=== PATIENT | male | born 1955 | race Caucasian/White ===

== ENCOUNTER → 2018-01-13 08:04 | Outpatient (CLI) | payer OTHER, SELFPAY ==
[2018-01-13 08:40] LABS: Add Manual Diff / Slide Review NO; Basophils Percent Auto 0.9 % (0-2); Eosinophils Percent Auto 3.8 % (2-4); Hematocrit 45.8 % (41-53); Hemoglobin 15.9 g/dL (13.5-17.5); Lymphocytes Percent Auto 29.5 % (25-40); Mean Corpuscular HGB Conc 34.7 % (30-36); Mean Corpuscular Hemoglobin 30.7 PG (26-34); Mean Corpuscular Volume 88.3 fL (80-100); Monocytes Percent Auto 9.8 % (3-14); Neutrophils Absolute Auto 2500 /uL (3000-5900); Platelet Count 264 X10^3/uL (150-400); Red Blood Cell Count 5.18 X10^6/uL (4.5-5.9); White Blood Cell Count 4.4 X10^3/uL (4.5-11.0)
[2018-01-13 08:48] LABS: Appearance Urine UA CLEAR; Bilirubin Urine UA NEGATIVE (NEGATIVE); Color Urine UA YELLOW; Glucose Urine UA NEGATIVE (Normal); Ketones Urine UA NEGATIVE (NEGATIVE); Leukocyte Esterase Urine UA NEGATIVE (NEGATIVE); Nitrite Urine UA Negative (Negative); Occult Blood Urine UA NEGATIVE (Negative); Protein Urine UA NEGATIVE (Negative); Specific Gravity Urine UA 1.015 (1.000-1.035); Urobilinogen Urine UA 0.2 E.U./dL (0.2)
[2018-01-13 08:52] LABS: Alanine Aminotransferase 30 IU/L (21-72); Albumin 4.1 g/dL (3.5-5.0); Albumin Globulin Ratio 1.3 (1.0-2.8); Alkaline Phosphatase 63 U/L (38-126); Aspartate Aminotransferase 28 IU/L (17-59); Bilirubin Total 0.8 mg/dL (0.2-1.3); Blood Urea Nitrogen 19 mg/dL (9-20); Calcium 8.9 mg/dL (8.4-10.2); Carbon Dioxide 30 mmol/L (22-32); Chloride 105 mmol/L (98-107); Cholesterol 172 mg/dL (140-199); Estimated Glomerular Filt Rate > 60.0 mL/min (>60); Globulin 3.1 g/dL (1.7-4.1); Glucose 95 mg/dL (80-110); HDL Cholesterol 51 mg/dL (40-60); HEMOLYSIS 16 (0-50); LDL Cholesterol Calculated 111 mg/dL (<100); Potassium 4.3 mmol/L (3.4-5.1); Sodium 143 mmol/L (137-145); Total Protein 7.2 g/dL (6.3-8.2); Triglycerides 52 mg/dL (35-150)
[2018-01-13 09:28] LABS: Thyroid Stimulating Hormone 0.87 uIU/mL (0.47-4.68)
[2018-01-13 09:46] LABS: Hep C Virus Ab w/Reflex Quant NEGATIVE s/c (NEGATIVE)
== END ==
PROVIDERS: PCP Family Medicine; Visit Provider Family Medicine
DX: E03.9 Hypothyroidism, unspecified (principal); E78.5 Hyperlipidemia, unspecified; Z51.81 Encounter for therapeutic drug level monitoring; Z20.5 Contact with and (suspected) exposure to viral hepatitis
CPT/HCPCS: 36415; 80053; 80061; 81003; 84443; 85025; 86803

== ENCOUNTER → 2019-01-18 07:00 | Outpatient (CLI) | payer OTHER, SELFPAY ==
[2019-01-18 07:05] LABS: WBC Urine None Seen (0-5/HPF)
[2019-01-18 08:07] LABS: Appearance Urine UA CLEAR; Bilirubin Urine UA NEGATIVE (NEGATIVE); Color Urine UA YELLOW; Glucose Urine UA NEGATIVE (Negative); Ketones Urine UA NEGATIVE (NEGATIVE); Leukocyte Esterase Urine UA NEGATIVE (NEGATIVE); Nitrite Urine UA NEGATIVE (Negative); Occult Blood Urine UA NEGATIVE (Negative); Protein Urine UA NEGATIVE (Negative); Specific Gravity Urine UA 1.015 (1.000-1.035); Urobilinogen Urine UA 0.2 E.U./dL (0.2); pH Urine UA 5.5 (4.5-8.0)
[2019-01-18 08:10] LABS: Add Manual Diff / Slide Review NO; Basophils Absolute Auto 100 /uL (0-100); Basophils Percent Auto 1.2 % (0-2); Eosinophils Absolute Auto 100 /uL (0-450); Eosinophils Percent Auto 2.8 % (2-4); Hematocrit 47.7 % (41-53); Hemoglobin 16.2 g/dL (13.5-17.5); Lymphocytes Absolute Auto 1400 /uL (1100-4500); Lymphocytes Percent Auto 29.6 % (25-40); Mean Corpuscular Hemoglobin 30.3 PG (26-34); Mean Corpuscular Volume 89.1 fL (80-100); Monocytes Absolute Auto 500 /uL (0-900); Monocytes Percent Auto 9.6 % (3-14); Neutrophils Absolute Auto 2700 /uL (1500-7000); Neutrophils Percent Auto 56.8 % (50-75); Platelet Count 315 X10^3/uL (150-400); Red Blood Cell Count 5.36 X10^6/uL (4.5-5.9); Red Cell Distribution Width 14.2 % (11.6-14.8); White Blood Cell Count 4.7 X10^3/uL (4.5-11.0)
[2019-01-18 08:23] LABS: Alanine Aminotransferase 27 IU/L (21-72); Albumin 4.3 g/dL (3.5-5.0); Albumin Globulin Ratio 1.3 (1.0-2.8); Alkaline Phosphatase 68 U/L (38-126); Aspartate Aminotransferase 31 IU/L (17-59); BUN Creatinine Ratio 15.5 (6-22); Bilirubin Total 0.7 mg/dL (0.2-1.3); Blood Urea Nitrogen 17 mg/dL (9-20); Calcium 9.1 mg/dL (8.4-10.2); Carbon Dioxide 28 mmol/L (22-32); Chloride 103 mmol/L (98-107); Cholesterol 188 mg/dL (140-199); Estimated Glomerular Filt Rate > 60.0 mL/min (>60); Globulin 3.3 g/dL (1.7-4.1); Glucose 92 mg/dL (80-110); HDL Cholesterol 51 mg/dL (40-60); HEMOLYSIS < 15 (0-50); LDL Cholesterol Calculated 127 mg/dL (<100); Potassium 4.7 mmol/L (3.4-5.1); Sodium 142 mmol/L (137-145); Total Protein 7.6 g/dL (6.3-8.2); Triglycerides 48 mg/dL (35-150)
[2019-01-18 08:27] LABS: Bacteria Urine Occasional (0-1); Culture Indicated Urine Cult Not Indicated; RBC Urine 0-1/HPF (0-5/HPF)
[2019-01-18 08:53] LABS: Prostate Specific Antigen 0.937 ng/mL (0.10-4.00)
[2019-01-18 09:30] LABS: Thyroid Stimulating Hormone 1.21 uIU/mL (0.47-4.68)
== END ==
PROVIDERS: Family Provider Urology; PCP Family Medicine; Visit Provider Family Medicine
DX: Z00.00 Encounter for general adult medical examination without abnormal findings (principal); R97.20 Elevated prostate specific antigen [PSA]; N40.0 Benign prostatic hyperplasia without lower urinary tract symptoms; E03.9 Hypothyroidism, unspecified; E78.5 Hyperlipidemia, unspecified; E78.00 Pure hypercholesterolemia, unspecified
CPT/HCPCS: 36415; 80053; 80061; 81001; 84153; 84443; 85025

== ENCOUNTER → 2019-04-25 08:47 | Outpatient (CLI) | payer OTHER, SELFPAY ==
[2019-04-25 10:13] LABS: Creatine Kinase 82 U/L (55-170)
[2019-04-25 10:16] LABS: C-Reactive Protein Quant < 0.5 mg/dL (<1.0)
[2019-04-25 10:20] LABS: Erythrocyte Sedimentation Rate 2 MM/HR (0-15)
[2019-04-25 10:58] LABS: Vitamin B12 440 pg/mL (239-931)
[2019-04-28 06:39] LABS: Aldolase 4.7 U/L (< 8.2)
[2019-04-29 19:50] LABS: Albumin 3.7 g/dL (3.8-4.8); Alpha 1 Globulin 0.2 g/dL (0.2-0.3); Alpha 2 Globulin 0.6 g/dL (0.5-0.9); Beta 1 Globulin 0.4 g/dL (0.4-0.6); Gamma Globulin 1.2 g/dL (0.8-1.7); Protein, Total 6.5 g/dL (6.1-8.1)
[2019-04-30 14:03] LABS: Vitamin B6 6.4 ng/mL (2.1-21.7)
[2019-04-30 14:51] LABS: Acetylcholine receptor antibod 18
[2019-05-05 09:48] LABS: Striational Tot Auto Antibodie NEGATIVE
== END ==
PROVIDERS: PCP Family Medicine; Visit Provider Internal Medicine
DX: M79.604 Pain in right leg (principal); M79.605 Pain in left leg; G62.9 Polyneuropathy, unspecified; G72.9 Myopathy, unspecified
CPT/HCPCS: 36415; 82085; 82550; 82607; 82784; 83036; 83519; 83520; 84155; 84165; 84207; 85651; 86038; 86140; 86200; 86255; 86334; 86431

== ENCOUNTER → 2020-01-17 07:16 | Outpatient (CLI) | payer OTHER, SELFPAY ==
[2020-01-17 08:43] LABS: Appearance Urine UA CLEAR; Bilirubin Urine UA NEGATIVE (NEGATIVE); Color Urine UA YELLOW; Glucose Urine UA NEGATIVE (Negative); Ketones Urine UA NEGATIVE (NEGATIVE); Leukocyte Esterase Urine UA NEGATIVE (NEGATIVE); Nitrite Urine UA NEGATIVE (Negative); Occult Blood Urine UA NEGATIVE (Negative); Protein Urine UA NEGATIVE (Negative); Specific Gravity Urine UA <=1.005 (1.000-1.035); Urobilinogen Urine UA 0.2 E.U./dL (0.2)
[2020-01-17 08:50] LABS: Add Manual Diff / Slide Review NO; Basophils Absolute Auto 0 /uL (0-100); Eosinophils Absolute Auto 100 /uL (0-450); Eosinophils Percent Auto 2.2 % (2-4); Hemoglobin 15.4 g/dL (13.5-17.5); Lymphocytes Absolute Auto 1000 /uL (1100-4500); Lymphocytes Percent Auto 22.5 % (25-40); Mean Corpuscular HGB Conc 34.2 % (30-36); Mean Corpuscular Hemoglobin 30.5 PG (26-34); Mean Corpuscular Volume 89.2 fL (80-100); Monocytes Absolute Auto 400 /uL (0-900); Monocytes Percent Auto 9.6 % (3-14); Neutrophils Absolute Auto 3000 /uL (1500-7000); Neutrophils Percent Auto 64.7 % (50-75); Platelet Count 269 X10^3/uL (150-400); Red Blood Cell Count 5.05 X10^6/uL (4.5-5.9); Red Cell Distribution Width 13.7 % (11.6-14.8); White Blood Cell Count 4.7 X10^3/uL (4.5-11.0)
[2020-01-17 09:08] LABS: Alanine Aminotransferase 23 IU/L (<50); Albumin 3.9 g/dL (3.5-5.0); Albumin Globulin Ratio 1.3 (1.0-2.8); Alkaline Phosphatase 67 U/L (38-126); Aspartate Aminotransferase 31 IU/L (17-59); Bilirubin Total 0.9 mg/dL (0.2-1.3); Blood Urea Nitrogen 15 mg/dL (9-20); Carbon Dioxide 30 mmol/L (22-32); Chloride 103 mmol/L (98-107); Cholesterol 163 mg/dL (140-199); Estimated Glomerular Filt Rate > 60.0 mL/min (>60); Glucose 88 mg/dL (80-110); HDL Cholesterol 57 mg/dL (40-60); HEMOLYSIS < 15 (0-50); LDL Cholesterol Calculated 93 mg/dL (<100); Potassium 4.3 mmol/L (3.4-5.1); Sodium 139 mmol/L (137-145); Total Protein 6.9 g/dL (6.3-8.2); Triglycerides 64 mg/dL (35-150)
[2020-01-17 09:25] LABS: Free T3, Triiodothyronine Free 3.92 pg/mL (2.77-5.27); Free T4, Direct Thyroxine 1.97 ng/dL (0.78-2.19)
[2020-01-17 09:36] LABS: Prostate Specific Antigen 0.859 ng/mL (0.10-4.00)
== END ==
PROVIDERS: PCP Nurse Practitioner Family; Referring Provider Nurse Practitioner Family; Visit Provider Family Medicine
DX: E03.9 Hypothyroidism, unspecified (principal); H65.90 Unspecified nonsuppurative otitis media, unspecified ear; M54.16 Radiculopathy, lumbar region; M72.2 Plantar fascial fibromatosis
CPT/HCPCS: 36415; 80053; 80061; 81003; 84153; 84439; 84443; 84481; 85025

== ENCOUNTER → 2020-03-26 07:05 | Outpatient (CLI) | payer OTHER, SELFPAY ==
[2020-03-26 09:56] LABS: Free T4, Direct Thyroxine 2.01 ng/dL (0.78-2.19)
[2020-03-26 10:10] LABS: Thyroid Stimulating Hormone 0.109 uIU/mL (0.47-4.68)
== END ==
PROVIDERS: PCP Nurse Practitioner Family; Referring Provider Nurse Practitioner Family; Visit Provider Nurse Practitioner Family
DX: E03.9 Hypothyroidism, unspecified (principal)
CPT/HCPCS: 36415; 84439; 84443

== ENCOUNTER → 2020-04-30 11:42 | Outpatient (CLI) | payer OTHER, SELFPAY ==
--- NOTE | 2020-04-30 11:45 | DI.RAD.S_ITS ---
PROCEDURE: XR LUMBAR SPINE 2-3V INDICATIONS: L hip pain post fall TECHNIQUE: 3 views of the lumbar spine were acquired. COMPARISON: None. FINDINGS: Bones: 5 [id number] vertebrae are present. There is normal bony alignment. No vertebral body compression fractures. No suspicious bony lesions. There is a slight degree of degenerative disc height reduction over the lower 2/3 of the LS spine and a dukb-of-hlxiefxm degree of degenerative disc disease at L1-L2. Facet osteoarthritis becomes progressively more prominent from L2 through S1. No definite subluxation is associated. Soft tissues: Overlying bowel gas pattern is normal. No suspicious soft tissue calcifications. IMPRESSION: Overall moderate degenerative changes to include degenerative disc disease and facet osteoarthritis as discussed. Spinal and foraminal stenosis over the lower half of the LS spine would be suspected. No acute trauma found. Dictated by: Regan Vargas M.D. on 04/30/2020 at 14:04 Approved by: Regan Vargas M.D. on 04/30/2020 at 14:05
--- NOTE | 2020-04-30 11:45 | DI.RAD.S_ITS ---
PROCEDURE: XR HIP W PEL IF DONE LT 2V INDICATIONS: L hip pain post fall TECHNIQUE: AP pelvis with lateral view(s) of the left hip(s). COMPARISON: None. FINDINGS: Bones: No fractures or dislocations. Pelvic ring appears intact. No suspicious bony lesions. Soft tissues: The visualized bowel gas pattern is normal. No suspicious soft tissue calcifications. IMPRESSION: No trauma found. If a hidden fracture is clinically suspected follow-up by MR scanning would provide the most accurate assessment. Dictated by: Regan Vargas M.D. on 04/30/2020 at 12:52 Approved by: Regan Vargas M.D. on 04/30/2020 at 12:52
== END ==
PROVIDERS: PCP Nurse Practitioner Family; Referring Provider Nurse Practitioner; Visit Provider Nurse Practitioner
DX: M25.552 Pain in left hip (principal); M54.9 Dorsalgia, unspecified
CPT/HCPCS: 72100; 73502

== ENCOUNTER → 2020-05-07 16:31 | Outpatient (CLI) | payer OTHER, SELFPAY ==
[2020-05-07 17:55] LABS: Thyroid Stimulating Hormone 2.54 uIU/mL (0.47-4.68)
== END ==
PROVIDERS: PCP Nurse Practitioner Family; Referring Provider Nurse Practitioner Family; Visit Provider Nurse Practitioner Family
DX: E03.9 Hypothyroidism, unspecified (principal)
CPT/HCPCS: 36415; 84443

== ENCOUNTER → 2020-06-12 13:53 | Outpatient (CLI) | payer MEDICARE, BC, SELFPAY | PROVIDERS: PCP Nurse Practitioner Family; Referring Provider Nurse Practitioner Family; Visit Provider Nurse Practitioner Family | DX: E03.9 Hypothyroidism, unspecified (principal) | CPT/HCPCS: 36415; 84443 ==

== ENCOUNTER → 2021-01-15 10:02 | Outpatient (CLI) | payer MEDICARE, OTHER, SELFPAY ==
[2021-01-15 10:56] LABS: Hematocrit 44.8 % (41-53); Hemoglobin 15.3 g/dL (13.5-17.5); Mean Corpuscular Hemoglobin 30.5 PG (26-34); Mean Corpuscular Volume 89.7 fL (80-100); Platelet Count 266 X10^3/uL (150-400); Red Cell Distribution Width 13.8 % (11.6-14.8); White Blood Cell Count 4.5 X10^3/uL (4.5-11.0)
[2021-01-15 11:08] LABS: Alanine Aminotransferase 21 IU/L (<50); Albumin 4.1 g/dL (3.5-5.0); Albumin Globulin Ratio 1.4 (1.0-2.8); Alkaline Phosphatase 66 U/L (38-126); Aspartate Aminotransferase 31 IU/L (17-59); BUN Creatinine Ratio 17.1 (6-22); Bilirubin Total 0.9 mg/dL (0.2-1.3); Blood Urea Nitrogen 14 mg/dL (9-20); Calcium 8.8 mg/dL (8.4-10.2); Carbon Dioxide 29 mmol/L (22-32); Chloride 106 mmol/L (98-107); Cholesterol 167 mg/dL (140-199); Estimated Glomerular Filt Rate > 60.0 mL/min (>60); Glucose 92 mg/dL (80-110); HDL Cholesterol 53 mg/dL (40-60); HEMOLYSIS < 15 (0-50); LDL Cholesterol Calculated 103 mg/dL (<100); Potassium 4.1 mmol/L (3.4-5.1); Sodium 139 mmol/L (137-145); Total Protein 7.1 g/dL (6.3-8.2); Triglycerides 55 mg/dL (35-150)
[2021-01-15 11:46] LABS: Thyroid Stimulating Hormone 0.574 uIU/mL (0.47-4.68)
== END ==
PROVIDERS: PCP Nurse Practitioner Family; Referring Provider Nurse Practitioner Family; Visit Provider Nurse Practitioner Family
DX: Z00.00 Encounter for general adult medical examination without abnormal findings (principal); E03.9 Hypothyroidism, unspecified; Z12.5 Encounter for screening for malignant neoplasm of prostate
CPT/HCPCS: 36415; 80053; 80061; 84439; 84443; 85027; G0103

== ENCOUNTER → 2022-02-21 07:29 | Outpatient (CLI) | payer MEDICARE, OTHER, SELFPAY ==
[2022-02-21 08:43] LABS: Hematocrit 44.5 % (41-53); Hemoglobin 15.5 g/dL (13.5-17.5); Mean Corpuscular HGB Conc 34.8 % (30-36); Mean Corpuscular Hemoglobin 30.6 PG (26-34); Mean Corpuscular Volume 87.9 fL (80-100); Platelet Count 224 X10^3/uL (150-400); Red Blood Cell Count 5.07 X10^6/uL (4.5-5.9); Red Cell Distribution Width 13.4 % (11.6-14.8); White Blood Cell Count 4.2 X10^3/uL (4.5-11.0)
[2022-02-21 09:19] LABS: Alanine Aminotransferase 23 IU/L (<50); Albumin 3.7 g/dL (3.5-5.0); Albumin Globulin Ratio 1.2 (1.0-2.8); Alkaline Phosphatase 64 U/L (38-126); Aspartate Aminotransferase 29 IU/L (17-59); BUN Creatinine Ratio 13.5 (6-22); Bilirubin Total 0.6 mg/dL (0.2-1.3); Blood Urea Nitrogen 14 mg/dL (9-20); Calcium 8.4 mg/dL (8.4-10.2); Carbon Dioxide 27 mmol/L (22-32); Chloride 103 mmol/L (98-107); Cholesterol 170 mg/dL (140-199); Estimated Glomerular Filt Rate > 60 mL/min (>60); Globulin 3.2 g/dL (1.7-4.1); Glucose 85 mg/dL (80-110); HDL Cholesterol 49 mg/dL (40-60); HEMOLYSIS < 15 (0-50); LDL Cholesterol Calculated 112 mg/dL (<100); Potassium 4.1 mmol/L (3.4-5.1); Sodium 139 mmol/L (137-145); Total Protein 6.9 g/dL (6.3-8.2); Triglycerides 46 mg/dL (35-150)
[2022-02-21 09:34] LABS: Free T4, Direct Thyroxine 1.66 ng/dL (0.78-2.19)
[2022-02-21 09:37] LABS: Appearance Urine UA CLEAR; Bilirubin Urine UA NEGATIVE (NEGATIVE); Color Urine UA YELLOW; Glucose Urine UA NEGATIVE (Negative); Ketones Urine UA NEGATIVE (NEGATIVE); Leukocyte Esterase Urine UA NEGATIVE (NEGATIVE); Nitrite Urine UA NEGATIVE (Negative); Occult Blood Urine UA 1+ (Negative); Protein Urine UA NEGATIVE (Negative); Urobilinogen Urine UA 0.2 E.U./dL (0.2)
[2022-02-21 09:45] LABS: Bacteria Urine Occasional (0-1); Culture Indicated Urine Cult Not Indicated; Mucus Urine 1+ (Negative); RBC Urine 0-1/HPF (0-5/HPF); Squamous Epithelial Cell Urine None Seen (0-5/HPF); WBC Urine 0-1/HPF (0-5/HPF)
[2022-02-21 09:47] LABS: Prostate Specific Antigen Scrn 1.06 ng/mL (0.1-4.0)
[2022-02-21 09:48] LABS: Thyroid Stimulating Hormone 1.42 uIU/mL (0.47-4.68)
== END ==
PROVIDERS: PCP Nurse Practitioner; Referring Provider Nurse Practitioner; Visit Provider Nurse Practitioner
DX: E03.9 Hypothyroidism, unspecified (principal); Z12.5 Encounter for screening for malignant neoplasm of prostate; Z00.00 Encounter for general adult medical examination without abnormal findings; Z13.6 Encounter for screening for cardiovascular disorders
CPT/HCPCS: 36415; 80053; 80061; 81001; 84439; 84443; 85027; G0103

== ENCOUNTER → 2022-03-11 12:06 | Outpatient (CLI) | payer MEDICARE, OTHER, SELFPAY ==
--- NOTE | 2022-03-11 12:07 | DI.RAD.S_ITS ---
PROCEDURE: XR CHEST 2V INDICATIONS: cough TECHNIQUE: 2 views of the chest were acquired. COMPARISON: None. FINDINGS: Surgical changes and devices: None. Lungs and pleura: Lungs are clear. No pleural effusions or pneumothorax. Eventration of the right hemidiaphragm. Mediastinum: Mediastinal contours are normal. Heart size is normal. Bones and chest wall: No suspicious bony abnormalities. Soft tissues appear unremarkable. IMPRESSION: No acute cardiopulmonary disease process. Dictated by: Deb Gregory MD, PhD on 03/11/2022 at 14:13 Approved by: Deb Gregory MD, PhD on 03/11/2022 at 14:14
== END ==
PROVIDERS: PCP Nurse Practitioner; Referring Provider Nurse Practitioner; Visit Provider Nurse Practitioner
DX: R05.9 Cough, unspecified (principal)
CPT/HCPCS: 71046

== ENCOUNTER → 2022-10-01 11:45 | Outpatient (CLI) | payer MEDICARE, OTHER, SELFPAY ==
[2022-10-01 13:04] LABS: Add Manual Diff / Slide Review NO; Basophils Absolute Auto 0 /uL (0-100); Basophils Percent Auto 0.6 % (0-2); Eosinophils Absolute Auto 100 /uL (0-450); Eosinophils Percent Auto 1.5 % (2-4); Hematocrit 44.3 % (41-53); Hemoglobin 15.2 g/dL (13.5-17.5); Lymphocytes Absolute Auto 1100 /uL (1100-4500); Lymphocytes Percent Auto 20.5 % (25-40); Mean Corpuscular HGB Conc 34.3 % (30-36); Mean Corpuscular Hemoglobin 30.6 PG (26-34); Mean Corpuscular Volume 89.4 fL (80-100); Monocytes Absolute Auto 400 /uL (0-900); Monocytes Percent Auto 7.9 % (3-14); Neutrophils Absolute Auto 3800 /uL (1500-7000); Neutrophils Percent Auto 69.5 % (50-75); Platelet Count 287 X10^3/uL (150-400); Red Blood Cell Count 4.96 X10^6/uL (4.5-5.9); Red Cell Distribution Width 14.4 % (11.6-14.8); White Blood Cell Count 5.5 X10^3/uL (4.5-11.0)
[2022-10-01 13:22] LABS: Alanine Aminotransferase 22 IU/L (<50); Albumin 4.1 g/dL (3.5-5.0); Albumin Globulin Ratio 1.4 (1.0-2.8); Alkaline Phosphatase 67 U/L (38-126); Aspartate Aminotransferase 23 IU/L (17-59); Bilirubin Total 0.7 mg/dL (0.2-1.3); Blood Urea Nitrogen 16 mg/dL (9-20); Carbon Dioxide 31 mmol/L (22-32); Chloride 101 mmol/L (98-107); Estimated Glomerular Filt Rate > 60 mL/min (>60); Globulin 2.9 g/dL (1.7-4.1); Glucose 80 mg/dL (80-110); HEMOLYSIS < 15 (0-50); Potassium 4.1 mmol/L (3.4-5.1); Sodium 137 mmol/L (137-145)
[2022-10-02 03:36] LABS: x Labcorp Estim. Avg Glu (eAG) 108 mg/dL (.); x Labcorp Hemoglobin A1c 5.4 % (4.8-5.6)
== END ==
PROVIDERS: PCP Nurse Practitioner; Referring Provider Orthopaedic Surgery Foot and Ankle Surgery; Visit Provider Orthopaedic Surgery Foot and Ankle Surgery
DX: R73.9 Hyperglycemia, unspecified (principal); Z01.812 Encounter for preprocedural laboratory examination
CPT/HCPCS: 36415; 80053; 83036; 85025

== ENCOUNTER 2022-12-05 08:38 | Inpatient (IN) | payer MEDICARE, OTHER, SELFPAY ==
[2022-12-05] VITALS (9 sets, daily range): BP systolic 93–146; BP diastolic 52–78; PULSE 47–65; RESP 14–20; TEMP 36.4–36.8; O2SAT 96–100; BMI 29.0
--- NOTE | 2022-12-05 | DI.RAD.S_ITS ---
PROCEDURE: XR KNEE RT 1TO2V INDICATIONS: POST OP TECHNIQUE: 2 views of the knee were acquired. COMPARISON: None. FINDINGS: Bones: Expected postop appearance of a left total knee arthroplasty. No acute bony abnormality. Soft tissues: Subcutaneous and intra-articular air, as expected. IMPRESSION: Expected postoperative appearance of a left total knee arthroplasty. Dictated by: Alexander Brink M.D. on 12/05/2022 at 13:16 Approved by: Alexander Brink M.D. on 12/05/2022 at 13:16
[2022-12-05] MEDS: LACTATED RINGERS 1,000 ML 42 ML IV (09:31)
[2022-12-05] MEDS: ACETAMINOPHEN 325 MG TABLET 975 MG PO (09:33)
[2022-12-05] MEDS: PREGABALIN 75 MG CAPSULE PO (09:33)
--- NOTE | 2022-12-05 10:25 | PM.PREOP ---
Pre-operative Note Interval Note History & Physical reviewed/Exam performed by Physician: Yes Changes to H&P: No
--- NOTE | 2022-12-05 10:46 | PM.OP.1 ---
Operative Date/Time/Diagnoses Date of procedure: 12/05/22 Time of procedure: 11:15 Pre-op diagnosis: Wound dehiscence right total knee incision Hematoma right knee Extensor mechanism rupture right knee--quadriceps tendon tear Post-op diagnosis: same Procedure & Clinicians Procedure: Incision drainage knee with polyethylene liner exchange CPT code 91773 right Repair quadriceps tendon tear, right CPT code 73508 Modifier 78 Same procedure as scheduled: Yes Indications: Patient is a 67-year-old male who underwent a right total knee arthroplasty 11/27/2022. On postop day 0 he went home and fell with a syncopal episode and sustained wound dehiscence and hematoma. He had some chris added to the inferior part of his incision but had continued to drain hematoma and noticed increased pain weakness in his thigh and difficulty with motion and extension weakness. X-rays were taken that demonstrated no hardware complication. He has been indicated for irrigation debridement and polyethylene exchange, exploration. He had not had any fevers. The risks and benefits of the procedure have been discussed with the patient and given the opportunity to ask questions. The risks of surgery include but are not limited to infection, malunion, nonunion, persistence of pain, damage to nerves and blood vessels, posttraumatic arthritis, DVT, PE, cardiopulmonary complications and . The patient expressed a thorough understanding of the risks and benefits of surgery and has elected to proceed. Consent was signed. During the operation, the services of a physician certified surgical assistant were medically indicated and necessary to provide the exposure of the operative site for the surgical procedure and to maintain the limb in a proper position to carry out the operation safely and efficiently. Without a qualified advertising sales assistant being present this would extended the operative procedure and made the procedure technically more difficult to perform. Surgeon: Leydi Joshua Merchandise Manager: Bela Samano Anesthesia Type: General and Local Operative Notes Findings: Near full-thickness quadriceps tendon rupture extending from medial proximal part of parapatellar arthrotomy proximally through the quadriceps exiting into the vastus lateralis with disruption of arthrotomy at the superior medial patella with quadriceps tear extending superior laterally to the vastus lateralis. Knee Hematoma Closure Type: primary Specimen(s): other (Synovial fluid) Prosthetic devices, grafts, tissues, transplants, or devices: Polyethylene liner exchange for [employer] 2 BCS right size 5612 mm articular poly insert Estimated Blood Loss (mL): 20 Blood products transfused: none Tourniquet time (min): 28 Procedure in detail: Patient was seen in the preoperative area the site of surgery marked informed consent confirmed. The patient was brought back to the operating room by the anesthesia team positioned on the table. Spinal anesthetic was administered. The patient was then positioned supine. The right lower extremities prepped and draped in standard sterile fashion. A formal time-out procedure was performed confirming the patient's side and site of surgery administration of appropriate preoperative antibiotic all were in agreement. Additional 1 g of TXA was administered. The Esmarch was used for exsanguination and the tourniquet raised to 250 mmHg. Previous chris and sutures were removed. Incision was made through the previous anterior incision line immediately additional hematoma food was encountered. There was a traumatic arthrotomy at the superior medial aspect of the patella. Skin flaps were raised and the prior medial parapatellar arthrotomy was exposed. Again there was a rupture of the arthrotomy closure at the superior medial part of the patella with the vastus medialis and this extended obliquely superiorly and laterally up through the quadriceps tendon exiting proximally 8 cm above the patella laterally into the vastus lateralis corresponding wear the patient stated he was having upper thigh pain. The entire medial parapatellar arthrotomy was reopened and the patella subluxed laterally to expose the joint. There was copious hematoma but no fresh blood. Hematoma was evacuated. The old sutures were removed. The knee was brought up into flexion and a osteotome used to remove the polyethylene liner. Then 6 L of saline with the pulse lavage was used to irrigate the joint and soft tissues. And remove the hematoma. Once this was completed gloves were changed. A new 12 mm poly liner was placed. Knee was taken through range of motion was stable at 0?, 30? 90?. Range of motion was 0-135. Tourniquet was released hemostasis was achieved. A mixture of bupivacaine and Exparel 266 mg was injected into the pericapsular and subcutaneous tissues for postoperative pain control. Next the knee was brought into 30? of flexion and a couple 1. Ethibond sutures were used to close the parapatellar arthrotomy. Then attention was turned proximally and the incision was extended a little bit to reach the most proximal aspect of the quadriceps rupture. 2. FiberWire suture were used to repair the quadriceps rupture 1st in the longitudinal fashion and proximally was sewing quadriceps to the vastus lateralis muscle. This was repeated sequentially from proximal to distal once the proximal aspect of the patella was reached additional suture was run through the vastus medialis into the quadriceps and parapatellar arthrotomy for secure repair. Next the 1. Ethibond were used again for the remainder of the medial pillar patellar arthrotomy forming a watertight seal. The knee was then taken through flexion extension range of motion and cycled and the patella was stable and there were no signs of fatigue on the parapatellar arthrotomy and extensor mechanism repair. Next 3-0 Vicryl was used to close the subcutaneous tissue followed by Monocryl and chris. And a eva dressing. Drapes removed. Patient was woken from anesthesia and taken to recovery area in good condition. There no immediate complications from this procedure. Complications: none Post-operative Condition: stable Disposition: PACU Plan for aftercare: Weightbear as tolerated in knee brace locked in extension x4 weeks. May open up knee brace for range of motion when nonweightbearing and work with therapy. Lock in full extension for ambulation. Resume aspirin 81 mg b.i.d. for DVT prophylaxis.
[2022-12-05] MEDS: CEFAZOLIN 2 GM/100 ML PREMIX 100 ML IV (11:20)
[2022-12-05] MEDS: TRANEXAMIC ACID 1,000 MG VIAL 1000 MG INJ ×2 (11:23→11:57)
--- NOTE | 2022-12-05 11:35 | SUR.OPER ---
Supine on padded OR bed. Pillow under head, arms secured on padded armboards <90 degree abduction. Safety belt across torso. Non-operative leg secured with tape over blanket over lower leg. Operative leg secured in Rogerio positioner. Foam padded brace at thigh of operative leg.
[2022-12-05] MEDS: BUPIVACAINE LIPOSOME 266 MG/20 ML VIAL INJ (11:48)
[2022-12-05] MEDS: BUPIVACAINE 0.25% (PF) 60 ML, EPINEPHrine 0.3 MG INJ (11:52)
[2022-12-05] MEDS: BUPIVACAINE 0.25% W/ EPI 30 ML VIAL 60 ML INJ (12:13)
[2022-12-05 13:24] LABS: Add Manual Diff / Slide Review NO; Basophils Absolute Auto 0 /uL (0-100); Basophils Percent Auto 0.6 % (0-2); Eosinophils Absolute Auto 200 /uL (0-450); Eosinophils Percent Auto 2.5 % (2-4); Hematocrit 33.9 % (41-53); Hemoglobin 11.8 g/dL (13.5-17.5); Lymphocytes Absolute Auto 1100 /uL (1100-4500); Lymphocytes Percent Auto 16.9 % (25-40); Mean Corpuscular HGB Conc 34.8 % (30-36); Mean Corpuscular Hemoglobin 30.6 PG (26-34); Mean Corpuscular Volume 87.9 fL (80-100); Monocytes Absolute Auto 600 /uL (0-900); Monocytes Percent Auto 9.2 % (3-14); Neutrophils Absolute Auto 4800 /uL (1500-7000); Neutrophils Percent Auto 70.8 % (50-75); Platelet Count 429 X10^3/uL (150-400); Red Blood Cell Count 3.86 X10^6/uL (4.5-5.9); Red Cell Distribution Width 13.8 % (11.6-14.8); White Blood Cell Count 6.8 X10^3/uL (4.5-11.0)
[2022-12-05] MEDS: OXYCODONE IR 5 MG TABLET PO (15:09)
== END 2022-12-05 15:52 | disposition home or self-care (01) | DRG 909 ==
PROVIDERS: Admitting Provider Orthopaedic Surgery Foot and Ankle Surgery; PCP Nurse Practitioner; Referring Provider Orthopaedic Surgery Foot and Ankle Surgery; Visit Provider Orthopaedic Surgery Foot and Ankle Surgery
PROC: 0SRC0JZ Replacement of Right Knee Joint with Synthetic Substitute, Open Approach (ICD-10-PCS; CPT 27447; principal; 2022-12-05 11:15)
DX: T81.30XA Disruption of wound, unspecified, initial encounter (principal); S80.01XA Contusion of right knee, initial encounter; S76.111A Strain of right quadriceps muscle, fascia and tendon, initial encounter; W18.30XA Fall on same level, unspecified, initial encounter; Z96.651 Presence of right artificial knee joint
CPT/HCPCS: 36415; 73560; 85025; 87070; 87075; 87077; 87186; 87205; C1776; C9290; J0171; J0690; J2250; J2704

== ENCOUNTER → 2023-02-24 06:54 | Outpatient (CLI) | payer MEDICARE, OTHER, SELFPAY ==
[2023-02-24 08:42] LABS: HEMOLYSIS < 15 (0-50)
[2023-02-24 08:47] LABS: Alanine Aminotransferase 21 IU/L (<50); Albumin Globulin Ratio 1.3 (1.0-2.8); Alkaline Phosphatase 61 U/L (38-126); Aspartate Aminotransferase 29 IU/L (17-59); Bilirubin Total 0.6 mg/dL (0.2-1.3); Blood Urea Nitrogen 20 mg/dL (9-20); Calcium 9.3 mg/dL (8.4-10.2); Carbon Dioxide 29 mmol/L (22-32); Chloride 104 mmol/L (98-107); Cholesterol 183 mg/dL (140-199); Estimated Glomerular Filt Rate > 60 mL/min (>60); Glucose 88 mg/dL (80-110); HDL Cholesterol 50 mg/dL (40-60); LDL Cholesterol Calculated 122 mg/dL (<100); Potassium 4.2 mmol/L (3.4-5.1); Sodium 139 mmol/L (137-145); Triglycerides 57 mg/dL (35-150)
[2023-02-24 09:18] LABS: Thyroid Stimulating Hormone 0.826 uIU/mL (0.47-4.68)
[2023-02-24 09:26] LABS: Creatinine Urine Random 256.7 mg/dL
[2023-02-24 09:30] LABS: Microalbumi Creatinin Ratio Ur 3.8 ug/mg CR (<30)
[2023-02-24 16:33] LABS: Prostate Specific Antigen 1.28 ng/mL (0.10-4.00)
== END ==
PROVIDERS: PCP Nurse Practitioner; Referring Provider Nurse Practitioner; Visit Provider Nurse Practitioner
DX: E03.9 Hypothyroidism, unspecified (principal); Z86.39 Personal history of other endocrine, nutritional and metabolic disease; Z82.49 Family history of ischemic heart disease and other diseases of the circulatory system; G47.33 Obstructive sleep apnea (adult) (pediatric); Z79.899 Other long term (current) drug therapy; G47.19 Other hypersomnia; R53.83 Other fatigue; N52.9 Male erectile dysfunction, unspecified; Z12.5 Encounter for screening for malignant neoplasm of prostate; Z85.46 Personal history of malignant neoplasm of prostate
CPT/HCPCS: 36415; 80053; 80061; 82043; 82570; 84153; 84443

== ENCOUNTER 2023-03-29 12:53 | Emergency (ER) | payer MEDICARE, OTHER, SELFPAY ==
[2023-03-29 12:54] VITALS: BP 141/80; PULSE 63; RESP 16; TEMP 36.7; O2SAT 98; BMI 30.7
--- NOTE | 2023-03-29 13:20 | ED.NECK ---
HPI - Neck Pain/Injury General Chief Complaint: Neck Pain/Injury Stated Complaint: pressure on head, pain in neck Time Seen by Provider: 03/29/23 13:19 Source: patient, RN notes reviewed and old records reviewed Mode of arrival: Ambulatory Limitations: no limitations History of Present Illness HPI Narrative: 67-year-old male on aspirin daily with history of hypothyroidism who presents with complaint of some persistent headache, feeling slightly often neck pain after having an injury on 03/16/2023. Patient states he was working a [employer] bale which weighed about 120 lb with stacked about 8 mails high so several feet above his head he was moving it off and he could not push it back up but could not quite control it. Patient had his arms up it fell forward striking his face he had contusions of his forehead and nose. States he thinks he had loss of consciousness about 4 or 5 minutes he states afterwards he was seen at primary care office had evaluation was put on some steroids and oral antifungal for his ears and was recommended to come be seen. He states he deferred but has had some persistent headache and neck pain that he describes as across the forehead and neck pain more on the right side of the neck and not midline. He is not had any other recent trauma, no syncopal episodes. He is not had any additional episodes or loss of consciousness. He does note he is had multiple injuries to his head in the past and occasional what sounds like concussions loss of consciousness but has not typically been worked up. He denies any new numbness, tingling or weakness. No chest pain, no shortness of breath denies any nausea or vomiting. He is had some mild dizziness. Related Data Home Medications Medication Instructions Recorded Confirmed aspirin 81 mg tablet,delayed 81 mg PO DAILY 02/15/18 03/16/23 release (Adult Low Dose Aspirin) multivitamin 1 tab PO DAILY 02/08/20 03/16/23 ResMed AirSense 10 Auto 03/19/21 03/16/23 [vinegar] PO ##0 10/14/22 03/16/23 ascorbic acid (vitamin C) 500 mg 500 mg PO .QD 10/14/22 03/16/23 capsule clobetasol 0.05 % scalp solution 1 applic topical PRN PRN skin 10/14/22 03/16/23 irritation #0 mL omega 5-sxi-hmi-fish oil 910 1 cap PO .QD 10/14/22 03/16/23 mg-1,400 mg capsule ([place]-3 Fish Oil) vitamin B complex 1 tab PO DAILY 10/14/22 03/16/23 Previous Rx's Medication Instructions Recorded dexamethasone sodium phosphate 0.1 2 drp EAR-LEFT BID #5 mL 03/16/23 % eye drops fluconazole 150 mg tablet 150 mg PO Q3D 2 doses #2 tabs 03/16/23 levothyroxine 150 mcg tablet See Rx Instructions .Route 03/16/23 .COMPLEX #90 tabs Allergies Allergy/AdvReac Type Severity Reaction Status Date / Time propoxyphene [PROPOXYPHENE] Allergy Intermediate hallucinati Verified 03/16/23 09:41 ons terbinafine [From LAMISIL] Allergy Unknown Verified 03/16/23 09:41 Review of Systems Review of Systems ROS Unobtainable: All systems reviewed & are unremarkable except as noted in HPI and below Patient History Medical History Prolonged AR interval History of Graves' disease Family history of heart disease Obesity (BMI 30-39.9) History of radioactive iodine thyroid ablation Psoriasis Hearing loss Arthritis Elevated PSA BPH (benign prostatic hyperplasia) Hyperlipidemia Hypothyroidism Colon polyps Anxiety Surgical History History of total knee arthroplasty (11/27/22) History of transurethral resection of prostate Hx of colonoscopy with polypectomy (01/2014) Hx of vasectomy S/P TURP (transurethral resection of prostate) (12/2010) Family History Sister Polycythemia rubra vera Brother Cancer Brother Cancer Father Cancer Mother Diabetes mellitus Social History household members: spouse Smoking Status: Former smoker Tobacco: How many years used: 15 second hand exposure: No alcohol intake: current substance use type: does not use Type(s) of exercise: walking, aerobic, swimming and yoga Smoking Status: Former smoker Substance Use Type: does not use Exam Narrative Exam Narrative: GEN: well nourished, well appearing male, alert and oriented x 3, patient appears to be in no acute distress. HEENT: Atraumatic, pupils are equal round reactive to light, extraocular movements are intact, nares are clear, TMs the right has some scarring over the eardrum but no obvious signs of infection no erythema no swelling, on the left eardrums intact there is 3 small areas of white scarring does not appear to be infected. There is no conjunctival pallor. Throat is clear without any exudates, erythema, tonsillar enlargement or uvular deviation HEART: Regular rate and rhythm without murmur, clicks, rubs. No carotid bruits, pulses are equal in upper and lower extremities LUNGS:Lungs clear to auscultation, no wheezes, rales, crackles, chest moves symmetrically ABD:bowel sounds normal, soft, non-tender, no guarding, rebound, rigidity, no masses noted, no hepatosplenomegaly :No CVA tenderness BACK: No cervical, thoracic or lumbar vertebral point tenderness. Patient has normal range of motion. Patient's gait is normal. MSCL: Non-tender, no muscle atrophy, muscles strength 5/5 upper and lower extremities, full range of motion, normal gait NEURO:CN 2-12 intact, sensation normal SKIN: No rash, erythema or skin changes noted. Initial Vital Signs Initial Vital Signs: Vital Signs Temperature 98.0 F 03/29/23 12:54 Pulse Rate 63 03/29/23 12:54 Respiratory Rate 16 03/29/23 12:54 Blood Pressure 141/80 H 03/29/23 12:54 Pulse Oximetry 98 03/29/23 12:54 Oxygen Delivery Method Room Air 03/29/23 12:54 Course Orders Ordered: ED Orders 03/29/23 13:36 CT head/brain wo con Stat 03/29/23 13:39 CT cervical spine wo con Stat Vital Signs Vital signs: Vital Signs - 8 hr 03/29/23 12:54 03/29/23 14:31 Temperature 98.0 F Pulse Rate 63 52 L Respiratory Rate 16 14 Blood Pressure 141/80 H 124/73 Pulse Oximetry 98 98 Oxygen Delivery Method Room Air Room Air MDM - Neck Pain/Injury Imaging Data CT scan - head: Radiologist's Impression: [address] [address] [address] Scan Report Signed Patient: Alfredo Slater MR#: [id number] : 1955 Acct:[id number] Age/Sex: 67 / M Date of Service: 03/29/23 Loc: ED Accession Number: [id number] Procedure: CT head/brain wo con Ordering Provider: Jazmín Starkey D.O. PROCEDURE: CT HEAD/BRAIN WO CON INDICATIONS: johnson, neck pain, had 120# haybale fall on pt. 1.5 weeks ago TECHNIQUE: Noncontrast 4.5 mm thick angled axial sections acquired from the foramen magnum to the vertex, with coronal and sagittal reformats. For radiation dose reduction, the following was used: automated exposure control, adjustment of mA and/or kV according to patient size. COMPARISON: [facility], CT, HEAD WITHOUT CONTRAST, 04/21/2011, 14:48. FINDINGS: Image quality: Excellent. CSF spaces: Basal cisterns are patent. No extra-axial fluid collections. Ventricles are normal in size and shape. Brain: No midline shift. No intracranial masses or hemorrhage. Guerrier-white matter interface is normal. Skull and face: Calvarium and visualized facial bones are intact, without suspicious lesions. Sinuses: Visualized sinuses and mastoids are clear. IMPRESSION: No acute intracranial pathology. Dictated by: Prosper Ozuna M.D. on 03/29/2023 at 13:06 Approved by: Prosper Ozuna M.D. on 03/29/2023 at 13:06 CT - cervical spine: Radiologist's Impression: [place] [address] CT Scan Report Signed Patient: Alfredo Slater MR#: [id number] : 1955 Acct:[id number] Age/Sex: 67 / M Date of Service: 03/29/23 Loc: ED Accession Number: [id number] Procedure: CT cervical spine wo con Ordering Provider: Jazmín Starkey D.O. PROCEDURE: CT CERVICAL SPINE WO CON INDICATIONS: johnson, neck pain, had 120# haybale fall on pt. 1.5 weeks ago TECHNIQUE: Noncontrast 3 mm thick sections acquired from the skull base to the T4 level. Sagittal and coronal reformats were then constructed. For radiation dose reduction, the following was used: automated exposure control, adjustment of mA and/or kV according to patient size. COMPARISON: [facility], CT, C-SPINE WITHOUT CONTRAST, 04/21/2011, 14:48. FINDINGS: Image quality: Excellent. Bones: No fractures or dislocations. Visualized superior ribs are intact. Multilevel facet arthrosis with foraminal narrowing most prominent at C6-C7 Soft tissues: Prevertebral soft tissues are normal in thickness. No paravertebral hematomas. No apical pneumothoraces. IMPRESSION: No acute osseous findings. Dictated by: Prosper Ozuna M.D. on 03/29/2023 at 13:03 Approved by: Prosper Ozuna M.D. on 03/29/2023 at 13:05 [facility] Narrative Medical decision making narrative: Discussed with patient patient is 13 days out from his initial injury he does take aspirin daily significant mechanism with 122 lb he male that fell several feet onto his forehead causing ecchymosis and bruising on his face and nose and neck pain which has been somewhat persistent as well as some mild headache and dizziness. Discussed with patient unlikely to have a large head bleed but not impossible. Patient states symptoms have been persisting he is somewhat concerned he is not had any repeat injuries so after discussion decision was made for CT imaging of head and C-spine. This shows Discharge Plan Departure Patient Disposition: Home Clinical Impression: Cervical strain Activity Restrictions/Additional Instructions: Follow up as needed, if you are having persistent neck pain I would have you follow-up with your primary care for PT or further evaluation. Your imaging today shows no sign of bleed, fracture or other changes to your head or cervical spine. You can take Tylenol 1000 mg every 6 hours as needed for headaches. You may continue your home medications as prescribed. Please return for severe headaches, passing out, sudden vision changes, new numbness, tingling or weakness, rapidly worsening neck pain, loss of bowel or bladder control or other new or concerning changes. Prescriptions: No Action aspirin [Adult Low Dose Aspirin] 81 mg tablet,delayed release (DR/EC) 81 mg PO DAILY ascorbic acid (vitamin C) 500 mg capsule 500 mg PO .QD clobetasol 0.05 % solution 1 applic Topical PRN PRN (Reason: skin irritation) Qty: 0 [vinegar] PO Qty: 0 Rx Instructions: apple cider vinegar vitamin B complex Tablet 1 tab PO DAILY multivitamin Tablet 1 tab PO DAILY [place]-3 Fish Oil 910-1,400 mg capsule 1 cap PO .QD Rx Instructions: 1,400 mg daily dexamethasone sodium phosphate 0.1 % drops 2 drp EAR-LEFT BID Qty: 5 0RF fluconazole 150 mg tablet 150 mg PO Q3D Qty: 2 0RF Rx Instructions: Repeat second dose 72 hrs after first dose levothyroxine 150 mcg tablet See Rx Instructions .ROUTE .COMPLEX Qty: 90 3RF Dose Instruction: TAKE ONE TABLET BY MOUTH ONCE DAILY Rx Instructions: TAKE ONE TABLET BY MOUTH ONCE DAILY (DME) ResMed AirSense 10 Auto See Rx Instructions .Route .MEDSUPPLY Rx Instructions: CPAP Min: 6 Max: 12 DME: [facility] Referrals: Kandy Villalobos ARNP [Primary Care Provider] - Stand Alone Forms: Patient Portal/API
--- NOTE | 2023-03-29 13:34 | PC.NURSE ---
Dr. wing at bedside for initial eval
--- NOTE | 2023-03-29 13:36 | DI.CT.S_ITS ---
PROCEDURE: CT HEAD/BRAIN WO CON INDICATIONS: johnson, neck pain, had 120# haybale fall on pt. 1.5 weeks ago TECHNIQUE: Noncontrast 4.5 mm thick angled axial sections acquired from the foramen magnum to the vertex, with coronal and sagittal reformats. For radiation dose reduction, the following was used: automated exposure control, adjustment of mA and/or kV according to patient size. COMPARISON: [facility], CT, HEAD WITHOUT CONTRAST, 04/21/2011, 14:48. FINDINGS: Image quality: Excellent. CSF spaces: Basal cisterns are patent. No extra-axial fluid collections. Ventricles are normal in size and shape. Brain: No midline shift. No intracranial masses or hemorrhage. Guerrier-white matter interface is normal. Skull and face: Calvarium and visualized facial bones are intact, without suspicious lesions. Sinuses: Visualized sinuses and mastoids are clear. IMPRESSION: No acute intracranial pathology. Dictated by: Prosper Ozuna M.D. on 03/29/2023 at 13:06 Approved by: Prosper Ozuna M.D. on 03/29/2023 at 13:06
--- NOTE | 2023-03-29 13:39 | DI.CT.S_ITS ---
PROCEDURE: CT CERVICAL SPINE WO CON INDICATIONS: johnson, neck pain, had 120# haybale fall on pt. 1.5 weeks ago TECHNIQUE: Noncontrast 3 mm thick sections acquired from the skull base to the T4 level. Sagittal and coronal reformats were then constructed. For radiation dose reduction, the following was used: automated exposure control, adjustment of mA and/or kV according to patient size. COMPARISON: [facility], CT, C-SPINE WITHOUT CONTRAST, 04/21/2011, 14:48. FINDINGS: Image quality: Excellent. Bones: No fractures or dislocations. Visualized superior ribs are intact. Multilevel facet arthrosis with foraminal narrowing most prominent at C6-C7 Soft tissues: Prevertebral soft tissues are normal in thickness. No paravertebral hematomas. No apical pneumothoraces. IMPRESSION: No acute osseous findings. Dictated by: Prosper Ozuna M.D. on 03/29/2023 at 13:03 Approved by: Prosper Ozuna M.D. on 03/29/2023 at 13:05
--- NOTE | 2023-03-29 13:45 | PC.NURSE ---
ambulatory to and from CT in nad
[2023-03-29 14:31] VITALS: BP 124/73; PULSE 52; RESP 14; O2SAT 98
== END 2023-03-29 14:33 | disposition home or self-care (01) ==
PROVIDERS: Emergency Provider Emergency Medicine; PCP Nurse Practitioner
DX: S16.1XXA Strain of muscle, fascia and tendon at neck level, initial encounter (principal); W18.30XA Fall on same level, unspecified, initial encounter; R42 Dizziness and giddiness
CPT/HCPCS: 70450; 72125; 99281; 99284

== ENCOUNTER → 2024-03-16 08:19 | Outpatient (CLI) | payer MEDICARE, OTHER, SELFPAY ==
[2024-03-16 09:09] LABS: Add Manual Diff / Slide Review NO; Basophils Absolute Auto 100 /uL (0-100); Basophils Percent Auto 1.2 % (0-2); Eosinophils Absolute Auto 200 /uL (0-450); Hematocrit 47.7 % (41-53); Hemoglobin 16.2 g/dL (13.5-17.5); Lymphocytes Absolute Auto 1200 /uL (1100-4500); Lymphocytes Percent Auto 25.2 % (25-40); Mean Corpuscular Hemoglobin 30.2 PG (26-34); Mean Corpuscular Volume 88.8 fL (80-100); Monocytes Absolute Auto 500 /uL (0-900); Monocytes Percent Auto 9.8 % (3-14); Neutrophils Absolute Auto 2800 /uL (1500-7000); Neutrophils Percent Auto 59.8 % (50-75); Platelet Count 284 X10^3/uL (150-400); Red Blood Cell Count 5.37 X10^6/uL (4.5-5.9); Red Cell Distribution Width 13.6 % (11.6-14.8); White Blood Cell Count 4.7 X10^3/uL (4.5-11.0)
[2024-03-16 09:36] LABS: BUN Creatinine Ratio 18.4 (6-22); Blood Urea Nitrogen 18 mg/dL (9-20); Calcium 9.2 mg/dL (8.4-10.2); Carbon Dioxide 28 mmol/L (22-32); Chloride 106 mmol/L (98-107); Cholesterol 194 mg/dL (140-199); Estimated Glomerular Filt Rate > 60 mL/min (>60); Glucose 93 mg/dL (80-110); HDL Cholesterol 49 mg/dL (40-60); HEMOLYSIS 19 (0-50); LDL Cholesterol Calculated 131 mg/dL (<100); Potassium 4.4 mmol/L (3.4-5.1); Sodium 138 mmol/L (137-145); Triglycerides 68 mg/dL (35-150)
[2024-03-16 09:56] LABS: TSH w/ Reflex to FT4 0.26 uIU/mL (0.47-4.68)
[2024-03-16 09:57] LABS: Prostate Specific Antigen Scrn 1.28 ng/mL (0.1-4.0)
[2024-03-16 10:20] LABS: Free T4, Direct Thyroxine 1.83 ng/dL (0.78-2.19)
== END ==
PROVIDERS: PCP Nurse Practitioner Family; Referring Provider Nurse Practitioner Family; Visit Provider Nurse Practitioner Family
DX: E03.9 Hypothyroidism, unspecified (principal); Z12.5 Encounter for screening for malignant neoplasm of prostate; Z82.49 Family history of ischemic heart disease and other diseases of the circulatory system; E66.9 Obesity, unspecified; Z86.39 Personal history of other endocrine, nutritional and metabolic disease; G47.33 Obstructive sleep apnea (adult) (pediatric); N40.0 Benign prostatic hyperplasia without lower urinary tract symptoms; R00.1 Bradycardia, unspecified; E78.5 Hyperlipidemia, unspecified; H60.332 Swimmer's ear, left ear; E05.00 Thyrotoxicosis with diffuse goiter without thyrotoxic crisis or storm
CPT/HCPCS: 36415; 80048; 80061; 84439; 84443; 85025; G0103

== ENCOUNTER → 2025-02-23 10:36 | Outpatient (CLI) | payer MEDICARE, OTHER, SELFPAY ==
[2025-02-23 12:13] LABS: Add Manual Diff / Slide Review NO; Hematocrit 46.7 % (41-53); Hemoglobin 15.9 g/dL (13.5-17.5); Lymphocytes Absolute Auto 1500 /uL (1100-4500); Mean Corpuscular HGB Conc 34.1 % (30-36); Mean Corpuscular Hemoglobin 30.0 PG (26-34); Mean Corpuscular Volume 88.0 fL (80-100); Platelet Count 282 X10^3/uL (150-400)
[2025-02-23 12:52] LABS: Alanine Aminotransferase 31 IU/L (<50); Albumin 4.5 g/dL (3.5-5.0); Albumin Globulin Ratio 1.4 (1.0-2.8); Alkaline Phosphatase 80 U/L (38-126); Blood Urea Nitrogen 15 mg/dL (9-20); Calcium 8.9 mg/dL (8.4-10.2); Carbon Dioxide 26 mmol/L (22-32); Chloride 102 mmol/L (98-107); Cholesterol 228 mg/dL (140-199); Estimated Glomerular Filt Rate > 60 mL/min (>60); Globulin 3.2 g/dL (1.7-4.1); Glucose 81 mg/dL (70-99); HDL Cholesterol 59 mg/dL (40-60); HEMOLYSIS 21 (0-50); Potassium 4.5 mmol/L (3.4-5.1); Sodium 138 mmol/L (137-145); Total Protein 7.7 g/dL (6.3-8.2); Triglycerides 80 mg/dL (35-150)
[2025-02-23 13:18] LABS: TSH w/ Reflex to FT4 0.21 uIU/mL (0.47-4.68)
[2025-02-23 16:56] LABS: Free T4, Direct Thyroxine 2.11 ng/dL (0.78-2.19)
== END ==
PROVIDERS: PCP Nurse Practitioner Family; Referring Provider Nurse Practitioner Family; Visit Provider Nurse Practitioner Family
DX: E78.5 Hyperlipidemia, unspecified (principal); Z12.5 Encounter for screening for malignant neoplasm of prostate; Z13.220 Encounter for screening for lipoid disorders; E03.9 Hypothyroidism, unspecified; E66.9 Obesity, unspecified; G47.33 Obstructive sleep apnea (adult) (pediatric)
CPT/HCPCS: 36415; 80053; 80061; 84439; 84443; 85025; G0103

== ENCOUNTER → 2025-02-24 09:47 | Outpatient (CLI) | payer MEDICARE, OTHER, SELFPAY ==
[2025-02-26 11:36] LABS: E coli Shiga Toxin EIA Negative (Negative)
[2025-02-26 12:39] LABS: Salmonella/Shigella Screen Final report (.)
== END ==
PROVIDERS: PCP Nurse Practitioner Family; Referring Provider Nurse Practitioner Family; Visit Provider Nurse Practitioner Family
DX: L29.0 Pruritus ani (principal); B82.9 Intestinal parasitism, unspecified
CPT/HCPCS: 87045

== ENCOUNTER → 2025-03-10 09:19 | Outpatient (CLI) | payer MEDICARE, OTHER, SELFPAY | PROVIDERS: PCP Nurse Practitioner Family; Referring Provider Nurse Practitioner Family; Visit Provider Nurse Practitioner Family | DX: L29.3 Anogenital pruritus, unspecified (principal); B82.9 Intestinal parasitism, unspecified | CPT/HCPCS: 87177 ==

== ENCOUNTER → 2025-03-28 07:26 | Outpatient (CLI) | payer MEDICARE, OTHER, SELFPAY ==
[2025-03-28 09:21] LABS: TSH w/ Reflex to FT4 0.73 uIU/mL (0.47-4.68)
== END ==
PROVIDERS: PCP Nurse Practitioner Family; Referring Provider Nurse Practitioner Family; Visit Provider Nurse Practitioner Family
DX: Z86.39 Personal history of other endocrine, nutritional and metabolic disease (principal)
CPT/HCPCS: 36415; 84443